=== PATIENT | female | born 1980 | race African-American/Black ===

== ENCOUNTER 2019-10-24 13:34 | Emergency (ER) | payer SELFPAY ==
[~2019-10-24] VITALS: Ht 157.5 cm; Wt 68.0 kg
--- NOTE | 2019-10-24 16:13 | RAD ---
INDICATION: Reason: COUGH / Spl. Instructions: / History: COMPARISON: None. FINDINGS: Single view of chest obtained. Cardiac silhouette is borderline in size. Mild interstitial prominence bilaterally with hazy groundglass opacity at left greater than right lung base IMPRESSION: * Mild groundglass opacities at left greater than right lung base as well as mild interstitial opacities bilaterally which could be from mild interstitial infiltrate or pulmonary vascular congestion. Electronically signed by: Andreas Baldwin MD (10/24/2019 4:10 PM) [id number]
[2019-10-24] MEDS ORDERED: LEVO750T5 PO (16:57)
[2019-10-24] MEDS ORDERED: PRED-220 PO (16:57)
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
[2019-10-24 17:50] VITALS: BP 148/82
== END 2019-10-24 17:57 | disposition home or self-care (01) ==
LOC: ER 13:34
DX: J18.9 Pneumonia, unspecified organism (principal); F41.9 Anxiety disorder, unspecified; F32.9 Major depressive disorder, single episode, unspecified
CPT/HCPCS: 71045; 81025; 99283

== ENCOUNTER 2020-08-29 01:25 | Emergency (ER) | payer SELFPAY ==
[~2020-08-29] VITALS: Ht 167.6 cm; Wt 100.0 kg
[~2020-08-29 01:25] MED LIST: LEVO750T5 PO; PRED-220 PO
[2020-08-29 01:58] LABS: BASO # 0.1 x10^3/uL (0.0-0.2); BASO % 1 % (0-3); EOS # 0.1 x10^3/uL (0.0-0.7); EOS % 2 % (0-3); LYMPH # 4.2 x10^3/uL (1.0-4.8); LYMPH % 57 % (24-48); MEAN CORPUSCULAR HEMOGLOBIN 28 pg (25-35); MEAN CORPUSCULAR HGB CONC 33 g/dL (31-37); MEAN CORPUSCULAR VOLUME 84 fL (79-100); MONO # 0.5 x10^3/uL (0.0-1.1); MONO % 7 % (0-9); NEUT # 2.4 x10^3/uL (1.8-7.7); NEUT % 33 % (31-73); PLATELET COUNT 321 x10^3/uL (140-400); RED BLOOD COUNT 4.27 x10^6/uL (3.50-5.40); RED CELL DISTRIBUTION WIDTH 18.7 % (11.5-14.5); WHITE BLOOD COUNT 7.4 x10^3/uL (4.0-11.0)
--- NOTE | 2020-08-29 02:00 | PHYS DOC ---
Past Medical History Past Medical History: Alcoholism, Anxiety, Depression Past Surgical History: No Surgical History Smoking Status: Never Smoker Alcohol Use: None General Adult EDM: Chief Complaint: WITHDRAWL HPI: HPI: 39 yo F PMH anxiety/depression and alcoholism, presents to the ed BIBEMS, crying stating "I'm just so scared, it's never been this bad," stating she drinks alcohol daily "as much as I can," last drink 12 hours ago, associated nausea and nonlocalized abdomen pain "I think it's cause I'm stressed." Reports history of alcohol withdrawal, takes Ativan for her anxiety which also helps with her alcohol. States she has to take a few shots every morning before work to prevent withdrawal symptoms. No history of alcohol withdrawal, hallucinations or seizures. Review of Systems: Review of Systems: Constitutional: Denies fever or chills. [] Eyes: Denies change in visual acuity. [] HENT: Denies nasal congestion or sore throat. [] Respiratory: Denies cough or shortness of breath. [] Cardiovascular: Denies chest pain or edema. [] GI: Denies bloody stools or diarrhea. [] : Denies dysuria or vaginal bleeding Musculoskeletal: Denies back pain or joint pain. [] Integument: Denies rash or diaphoresis Neurologic: Denies headache, focal weakness or sensory changes. [] Endocrine: Denies polyuria or polydipsia. [] Lymphatic: Denies swollen glands. [] Psychiatric: Denies depression or anxiety. [] Heart Score: C/O Chest Pain: No Risk Factors: Risk Factors: DM, Current or recent (<one month) smoker, HTN, HLP, family history of CAD, obesity. Risk Scores: Score 0 - 3: 2.5% MACE over next 6 weeks - Discharge Home Score 4 - 6: 20.3% MACE over next 6 weeks - Admit for Clinical Observation Score 7 - 10: 72.7% MACE over next 6 weeks - Early Invasive Strategies Physical Exam: PE: Constitutional: no acute distress, non-toxic appearance. HENT: Normocephalic, atraumatic, no tongue fasciculations Eyes: EOMI, conjunctiva normal, no discharge. Neck: Normal range of motion, supple, Cardiovascular: S1/2 present, regular rhythm Lungs & Thorax: Speaking in full sentences, bilateral equal chest rise, no tachypnea or increased work of breathing Abdomen: soft, no rigidity or guarding, 1 episode of clear emesis in ED Skin: Warm, dry, no erythema, no rash. [] Extremities: No tenderness, no cyanosis, no tremors Neurologic: Alert and oriented X 3, normal motor function, normal sensory function, no focal deficits noted. [] Psychologic: Flat affect, depressed mood-tearful and crying in ED stating "I'm so worried" EKG: EKG: [] Radiology/Procedures: Radiology/Procedures: [] Course & Med Decision Making: Course & Med Decision Making Pertinent Labs and Imaging studies reviewed. (See chart for details) Concern for mild alcohol intoxication in setting of anxiety, resolved with IV Ativan. Patient with no tremors or tongue fasciculations, CIWA score 0. Is requesting Librium for alcohol withdrawal. Pt is not a danger to herself or others. Will discharge home with strict ED return precautions were given for SI, head trauma, HI, psychosis, seizures or tremors. Encouraged urgent outpatient follow-up with PMD and RSI for alcohol addiction management. Life-threatening processes were considered but are low suspicion at this time, given history, physical exam and ED workup. Pt was educated on all prescription medications and adverse effects. All patient's questions were answered and pt was stable at time of discharge. Life/limb-threatening differential includes but is not limited to, end organ damage/sepsis, trauma/abuse/neglect, neurologic deficit, alcohol/drug ingestion, toxidrome, suicidal/homicidal ideations plans or attempts, psychosis or mental illness resulting in self neglect and inability to care for self. I have spoken with the patient and/or caregivers. I explained the patient's condition, diagnoses and treatment plan based on the information available to me at this time. I have answered the patient and/or caregiver's questions and addressed any concerns. The patient and/or caregivers have a good understanding of patient's diagnosis, condition and treatment plan as can be expected at this point. Vital signs have been stable. Patient's condition is stable and appropriate for discharge from the emergency department. Patient will pursue further outpatient evaluation with primary care physician or other designated or consulting physician as outlined in the discharge instructions. The patient and/or caregivers are agreeable to this plan of care and follow-up instructions have been explained in detail. The patient and/or caregivers have received these instructions in written form and have expressed an understanding of the discharge instructions. The patient and/or caregivers are aware that any significant change of condition or worsening of symptoms should prompt immediate return to this or the closest emergency department or call to 911Mark Spicer Disclaimer: Dannielle Disclaimer: This electronic medical record was generated, in whole or in part, using a voice recognition dictation system. Departure Departure Impression: Primary Impression: Alcoholism Additional Impression: Anxiety Disposition: 01 HOME / SELF CARE / HOMELESS Condition: STABLE Referrals: NO PCP (PCP) Follow-up with your primary care physician in 24 to 48 hours OR FOLLOW UP WITH FAMILY MEDICINE: [address] [place] [address] Patient Instructions: Anxiety and Panic Attacks, Chronic Alcoholism Additional Instructions: [facility]BUSE [facility]NAG[facility] [address] [place] [address] 24-hour crisis line: [phone] EMERGENCY DEPARTMENT GENERAL DISCHARGE INSTRUCTIONS Thank you for coming to [facility] Emergency Department (ED) today and trusting us with you care. We trust that you had a positive experience in our Emergency Department. If you wish to speak to the department management, you may call the Director at [phone]. YOUR FOLLOW UP INSTRUCTIONS ARE FOLLOWS: 1. Do you have a private Doctor? If you do not have a private doctor, please ask for a resource list of physicians or clinics that may be able to assist you with fol low up care. 2. The Emergency Physicain has interpreted your x-rays. The X-Ray specialist will also review them. If there is a change in the findings, you will be notified in 48 hours when at all possible. 3. A lab test or culture has been done, your results will be reviewed and you will be notified if you need a change in treatment. ADDITIONAL INSTRUCTIONS AND INFORMATION: 1. Your care today has been supervised by a physician who is specially trained in emergency care. Many problems require more than one evaluation for a complete diagnosis and treatment. We recommend that you schedule your follow up appointment as r ecommended to ensure complete treatment of you illness or injury. If you are unable to obtain follow up care and continue to have a problem, or if your condition worsens, we recommend that you return to the ED. 2. We are not able to safely determine your condition over the phone nor are we able to give sound medical advice over the phone. For these safety reasons, if you call for medical advice we will ask you to come to the ED for further evaluation. 3. If you have any questions regarding these discharge instructions please call the ED at [phone]. SAFETY INFORMATION: In the interest of safety, wellness, and injury prevention; we encourage you to wear your sealbelt, if you smoke; quite smoking, and we encourage family to use a protective helmet for bicycling and other sporting events that present an increased risk for head injury. IF YOUR SYMPTOMS WORSEN OR NEW SYMPTOMS DEVELOP, OR YOU HAVE CONCERNS ABOUT YOUR CONDITION; OR IF YOUR CONDITION WORSENS WHILE YOU ARE WAITING FOR YOUR FOLLOW UP APPOINTMENT; EITHER CONTACT YOUR PRIMARY CARE DOCTOR, THE PHYSICIAN WHOSE NAME AND NUMBER YOU WERE GIVEN, OR RETURN TO THE ED IMMEDIATELY. Scripts Ondansetron (ONDANSETRON ODT) 4 Mg Tab.rapdis 1 TAB PO PRN Q6-8HRS, #20 TAB Prov: MARIANNE WHITFIELD DO 08/29/20 Chlordiazepoxide Hcl (CHLORDIAZEPOXIDE HCL) 25 Mg Capsule 25 MG PO PRN PRN for WITHDRAWAL IRRITABILITY MDD 300 mg/daily, #30 CAP take 2 tablets by mouth, every 8 hours x 2 days, take 1 tablet by mouth, every 8 hours x 2 days, take 1 tablet by mouth, every 8 hours prn Prov: MARIANNE WHITFIELD DO 08/29/20 MARIANNE WHITFIELD DO Aug 29, 2020 02:00
[2020-08-29 02:07] LABS: CALCIUM 8.9 mg/dL (8.5-10.1); CREATININE 0.5 mg/dL (0.6-1.0); GFR 164.5; POTASSIUM 4.3 mmol/L (3.5-5.1)
[2020-08-29 02:10] LABS: PREG TEST PT QUAL NEGATIVE (NEG)
[2020-08-29 02:13] LABS: ALBUMIN 3.3 g/dL (3.4-5.0); ALBUMIN/GLOBULIN RATIO 0.9 (1.0-1.7); TOTAL BILIRUBIN 0.7 mg/dL (0.2-1.0); TOTAL PROTEIN 6.9 g/dL (6.4-8.2)
[2020-08-29] MEDS ORDERED: ONDANSETRON PF 4 MG/2 ML VIAL. IVP ONE (02:30)
[2020-08-29] MEDS ORDERED: MULTIVIT INFUSN,ADULT 4,VIT K 10 ML, THIAMINE INJ 100 MG, FOLIC ACID INJ 1 MG in IV NOR... IV ONE (02:30)
[2020-08-29] MEDS ORDERED: FAMOTIDINE 20 MG/2 ML VIAL IVP ONE (02:30)
[2020-08-29 02:56] LABS: BARBITURATES NEG (NEG); BENZODIAZEPINES NEG (NEG); CANNABINOIDS NEG (NEG); COCAINE NEG (NEG); METHADONE NEG (NEG); OPIATES NEG (NEG); PHENCYCLIDINE NEG (NEG)
[2020-08-29 02:57] LABS: AMPHETAMINE/METHAMPHETAMINE NEG (NEG)
[2020-08-29] MEDS ORDERED: CHLO25CA9 PO (04:14)
[2020-08-29] MEDS ORDERED: ONDA4TAB12 PO (04:15)
[2020-08-29 04:25] VITALS: BP 113/64
== END 2020-08-29 04:40 | disposition home or self-care (01) ==
LOC: ER 01:25
DX: F10.239 Alcohol dependence with withdrawal, unspecified (principal); Y90.1 Blood alcohol level of 20-39 mg/100 ml; F41.9 Anxiety disorder, unspecified; R11.2 Nausea with vomiting, unspecified
CPT/HCPCS: 36415; 80053; 80307; 83690; 84703; 85025; 96365; 96375; 99285; G0480; J2060; J2405; J3411; J3490; J7030

== ENCOUNTER 2021-01-21 16:27 | Emergency (ER) | payer SELFPAY ==
[~2021-01-21] VITALS: Ht 165.1 cm; Wt 90.9 kg
[~2021-01-21 16:27] MED LIST changes: +CHLO25CA9 PO; +ONDA4TAB12 PO
[2021-01-21 16:49] LABS: BASO % 1 % (0-3); EOS % 0 % (0-3); HEMATOCRIT 37.4 % (36.0-47.0); HEMOGLOBIN 12.3 g/dL (12.0-15.5); LYMPH # 2.5 x10^3/uL (1.0-4.8); LYMPH % 28 % (24-48); MEAN CORPUSCULAR HEMOGLOBIN 29 pg (25-35); MEAN CORPUSCULAR HGB CONC 33 g/dL (31-37); MEAN CORPUSCULAR VOLUME 88 fL (79-100); MONO # 0.4 x10^3/uL (0.0-1.1); MONO % 5 % (0-9); NEUT % 67 % (31-73); PLATELET COUNT 286 x10^3/uL (140-400); RED BLOOD COUNT 4.27 x10^6/uL (3.50-5.40); RED CELL DISTRIBUTION WIDTH 16.8 % (11.5-14.5)
[2021-01-21 17:09] LABS: CALCIUM 8.5 mg/dL (8.5-10.1); CREATININE 0.4 mg/dL (0.6-1.0); GFR 211.8; POTASSIUM 3.7 mmol/L (3.5-5.1)
[2021-01-21 17:11] LABS: ALBUMIN 3.3 g/dL (3.4-5.0); ALBUMIN/GLOBULIN RATIO 0.9 (1.0-1.7); TOTAL BILIRUBIN 0.6 mg/dL (0.2-1.0); TOTAL PROTEIN 6.9 g/dL (6.4-8.2)
[2021-01-21] MEDS ORDERED: IV NORMAL SALINE 1000ML BAG 1,000 ML IV ONE (18:45)
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
[2021-01-21 21:39] LABS: BILIRUBIN,URINE NEGATIVE (NEG); CLARITY,URINE CLEAR; COLOR,URINE YELLOW; NITRITE,URINE NEGATIVE (NEG); PH,URINE 5.5 (<5.0-8.0); PROTEIN,URINE NEGATIVE (NEG-TRACE); UROBILINOGEN,URINE 0.2 mg/dL (0.2 mg/dL)
[2021-01-21 21:54] LABS: BACTERIA,URINE 0 /HPF (0-FEW); BARBITURATES NEG (NEG); BENZODIAZEPINES NEG (NEG); CANNABINOIDS NEG (NEG); COCAINE NEG (NEG); METHADONE NEG (NEG); OPIATES NEG (NEG); PHENCYCLIDINE NEG (NEG); RBC,URINE 0 /HPF (0-2); WBC,URINE 0 /HPF (0-4)
[2021-01-21 21:55] LABS: AMPHETAMINE/METHAMPHETAMINE NEG (NEG)
[2021-01-21 23:00] VITALS: BP 96/60
== END 2021-01-22 00:05 | disposition home or self-care (01) ==
LOC: ER 16:27
DX: F10.229 Alcohol dependence with intoxication, unspecified (principal); Y90.8 Blood alcohol level of 240 mg/100 ml or more; F17.200 Nicotine dependence, unspecified, uncomplicated
CPT/HCPCS: 36415; 80053; 80307; 81001; 83690; 85025; 99285; G0480; J7030

== ENCOUNTER 2021-05-01 10:42 | Emergency (ER) | payer SELFPAY ==
[~2021-05-01] VITALS: Ht 177.8 cm; Wt 104.5 kg
[2021-05-01] MEDS ORDERED: IV NORMAL SALINE 1000ML BAG 1,000 ML IV ONE (11:15)
--- NOTE | 2021-05-01 11:15 | PHYS DOC ---
Past Medical History Past Medical History: Alcoholism, Anxiety, Depression Past Surgical History: No Surgical History Smoking Status: Current Every Day Smoker Alcohol Use: Heavy General Adult EDM: Chief Complaint: WITHDRAWL HPI: HPI: Patient is a 40 year old female presents with states that she lost her cousin and a friend recently and started drinking again. She states she has been drinking airplane shots and states she has been drinking 15 to 17 to 20 a day. She states that she is gets tremors and then last night when she was sleeping she started jerking. Patient states she would like to go to detox. 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 She is a history of alcoholism, anxiety, depression, smoking. Denies chest pain, HI, SI, hallucinations, shortness of breath, abdominal pain, nausea, vomiting, diarrhea, fever, headache, dizziness, syncope, fall, numbness or tingling. Review of Systems: Review of Systems: Constitutional: Denies fever or chills. [] Eyes: Denies change in visual acuity. [] HENT: Denies nasal congestion or sore throat. [] Respiratory: Denies cough or shortness of breath. [] Cardiovascular: Denies chest pain or edema. [] GI: Denies abdominal pain, nausea, vomiting, bloody stools or diarrhea. [] : Denies dysuria. [] Musculoskeletal: Denies back pain or joint pain. [] Integument: Denies rash. [] Neurologic: Denies headache, focal weakness or sensory changes. + Tremors [] Endocrine: Denies polyuria or polydipsia. [] Lymphatic: Denies swollen glands. [] Psychiatric: Denies depression or +anxiety. + Alcoholism [] Heart Score: C/O Chest Pain: No Allergies: Allergies: Allergies Coded Allergies Type Severity Reaction Last Updated Verified No Known Drug Allergies 08/29/20 No Physical Exam: PE: Constitutional: Well developed, well nourished, no acute distress, non-toxic appearance. [] HENT: Normocephalic, atraumatic, bilateral external ears normal, oropharynx moist, no oral exudates, nose normal. [] Eyes: PERRLA, EOMI, conjunctiva normal, no discharge. [] Neck: Normal range of motion, no tenderness, supple, no stridor. [] Cardiovascular:Heart rate regular rhythm, no murmur [] Lungs & Thorax: Bilateral breath sounds clear to auscultation [] Abdomen: Bowel sounds normal, soft, no tenderness, no masses, no pulsatile m asses. [] Skin: Warm, dry, no erythema, no rash. [] Back: No tenderness, no CVA tenderness. [] Extremities: No tenderness, no cyanosis, no clubbing, ROM intact, no edema. [] Neurologic: Alert and oriented X 3, normal motor function, normal sensory function, no focal deficits noted. [] Psychologic: Affect normal, judgement normal, mood normal. Alcohol intoxication and slurring words [] EKG: EKG: [] Radiology/Procedures: Radiology/Procedures: [] Course & Med Decision Making: Course & Med Decision Making Pertinent Labs and Imaging studies reviewed. (See chart for details) See HPI. Speaks in full clear /slight slurring sentences. Ambulatory with a steady gait. Intoxicated. Very Anxious. 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 Poor historian. Lungs are clear to aus cultation in all lobes. I have ordered 1mg Ativan for the patient. She is also getting 1 L normal saline and 1 banana bag. Patient can not tell me where she is and unsure of year. Patient is stable. Blood work is unremarkable. She is medically cleared. Patient has been accepted to [facility] by [facility]. 2020: RN called [facility] and they stated that the patient was no longer going to [facility] post. [facility] is now screening the patient over the phone for possible placement. [] Dannielle Disclaimer: Dannielle Disclaimer: This electronic medical record was generated, in whole or in part, using a voice recognition dictation system. Departure Departure Impression: Primary Impression: Alcohol intoxication Qualified Codes: F10.920 - Alcohol use, unspecified with intoxication, uncomplicated Disposition: 62 INPATIENT REHAB FACILITY ([facility]) Condition: STABLE Referrals: NO PCP (PCP) Patient Instructions: Alcohol Intoxication, Alcohol Problems, Alcohol Withdrawal Additional Instructions: Go to the rehab facility as instructed. Scripts Chlordiazepoxide Hcl (CHLORDIAZEPOXIDE HCL) 25 Mg Capsule 25 MG PO PRN PRN for ANXIETY / AGITATION for 4 Days, #15 CAP 50mg every 6 hours x 1 day. 25mg every 6 hours x 1 day. 25mg BID x 1 day. 25mg QHS x 1 day. Prov: BAFUS,MARCEL M COMMUTATOR ASSEMBLER 05/01/21 MARCEL MARTELL APRN May 01, 2021 11:15
[2021-05-01 11:22] LABS: BILIRUBIN,URINE NEGATIVE (NEG); CLARITY,URINE CLEAR; COLOR,URINE YELLOW; PH,URINE 5.5 (<5.0-8.0); PROTEIN,URINE NEGATIVE (NEG-TRACE)
[2021-05-01 11:23] LABS: NITRITE,URINE NEGATIVE (NEG); UROBILINOGEN,URINE 0.2 mg/dL (0.2 mg/dL)
[2021-05-01 11:24] LABS: BACTERIA,URINE 0 /HPF (0-FEW); RBC,URINE OCC /HPF (0-2); WBC,URINE OCC /HPF (0-4)
[2021-05-01 11:26] LABS: AMPHETAMINE/METHAMPHETAMINE NEG (NEG); BARBITURATES NEG (NEG); BENZODIAZEPINES NEG (NEG); CANNABINOIDS NEG (NEG); COCAINE NEG (NEG); METHADONE NEG (NEG); OPIATES NEG (NEG); PHENCYCLIDINE NEG (NEG)
[2021-05-01] MEDS ORDERED: MULTIVIT INFUSN,ADULT 4,VIT K 10 ML, THIAMINE INJ 100 MG, FOLIC ACID INJ 1 MG in IV NOR... IV ONE (11:30)
[2021-05-01 11:42] LABS: BASO % 1 % (0-3); EOS # 0.2 x10^3/uL (0.0-0.7); EOS % 3 % (0-3); HEMATOCRIT 35.9 % (36.0-47.0); HEMOGLOBIN 11.7 g/dL (12.0-15.5); LYMPH # 2.9 x10^3/uL (1.0-4.8); LYMPH % 41 % (24-48); MEAN CORPUSCULAR HEMOGLOBIN 28 pg (25-35); MEAN CORPUSCULAR HGB CONC 33 g/dL (31-37); MEAN CORPUSCULAR VOLUME 86 fL (79-100); MONO # 0.3 x10^3/uL (0.0-1.1); MONO % 5 % (0-9); NEUT # 3.5 x10^3/uL (1.8-7.7); NEUT % 51 % (31-73); PLATELET COUNT 338 x10^3/uL (140-400); RED BLOOD COUNT 4.16 x10^6/uL (3.50-5.40); RED CELL DISTRIBUTION WIDTH 15.3 % (11.5-14.5); WHITE BLOOD COUNT 6.9 x10^3/uL (4.0-11.0)
[2021-05-01 11:51] LABS: CALCIUM 8.3 mg/dL (8.5-10.1); CREATININE 0.6 mg/dL (0.6-1.0); GFR 132.7; POTASSIUM 3.3 mmol/L (3.5-5.1)
[2021-05-01 11:52] LABS: MAGNESIUM 2.3 mg/dL (1.8-2.4)
[2021-05-01 12:04] LABS: ACETAMIN < 2.0 mcg/ml (10-30); ETHANOL 281 mg/dL (0-10); SALIC < 0.2 mg/dL (2.8-20.0)
--- NOTE | 2021-05-01 18:44 | EKG ---
[facility] [address] [place] [id number] Test Date: 2021-05-01 Test Time: 17:33:13 Pat Name: MARGARETTE WIGGINS Department: Room: Gender: F Manager Pool: : [id number] Requested By: MARCEL MARTELL Order Number: [id number] Reading MD: Measurements Intervals [place] Rate: 98 P: 46 [place]: 174 QRS: 49 QRSD: 84 T: 4 QT: 362 QTc: 464 Interpretive Statements SINUS RHYTHM NORMAL ECG RI6.02 No previous ECG available for comparison
[2021-05-01] MEDS ORDERED: CHLO25CA9 PO (20:51)
[2021-05-01 21:57] VITALS: BP 127/80
== END 2021-05-01 22:05 ==
LOC: ER 10:42
DX: U07.1 COVID-19 (principal); F10.229 Alcohol dependence with intoxication, unspecified; Y90.8 Blood alcohol level of 240 mg/100 ml or more; F17.200 Nicotine dependence, unspecified, uncomplicated
CPT/HCPCS: 36415; 80048; 80307; 80329; 81001; 82550; 83735; 85025; 87426; 93005; 96365; 96366; 96375; 96376; 99285; C9803; G0480; J2060; J3411; J3490; J7030; U0003